=== PATIENT | female | born 1960 | race Caucasian/White ===

== ENCOUNTER → 2019-05-27 | Day surgery (SDC) | payer BC ==
[~2019-05-27] MED LIST: Dexamethasone 4 MG/ML SDV IV ONE; Lactated Ringers 1,000 ML IV SCH; Promethazine 25 MG/ML SDV IV ONE; Propofol 200 MG/20 ML SDV IV ONE
--- NOTE | 2019-05-27 14:54 | OR ---
DATE OF OPERATION: 05/27/2019 PREOPERATIVE DIAGNOSIS: POSITIVE COLOGUARD. POSTOPERATIVE DIAGNOSIS: POSITIVE COLOGUARD. SURGEON: Shahzad Gordon MD PROCEDURE: FULL-LENGTH COLONOSCOPY WITH FORCEPS POLYP REMOVAL X1. 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 COMPLICATIONS: None. SPECIMEN: Elongated sessile polyp, proximal sigmoid colon approximately 7 to 8 mm. FINDINGS: 1. Full-length colonoscopy. 2. Mild pandiverticulosis. 3. Sessile polyp, proximal sigmoid colon. RECOMMENDATIONS: Followup colonoscopy in 5 years. INDICATIONS: The patient was in for routine physical. Elected to have a colon cancer screen via [employer]. It was positive. She was sent for diagnostic scope. DESCRIPTION OF PROCEDURE: The patient was prepped and draped, placed in the left lateral decubitus position. A lubricated Olympus colonoscope was inserted and easily advanced to the cecum. Direct visualization of the ileocecal valve and appendiceal orifice was accomplished. The bowel prep was excellent. Upon withdrawal of the scope, the cecal pouch, ascending and transverse colon were completely benign. No lesions in the descending colon. Right in the immediate proximal sigmoid colon, the patient had a semi-elongated sessile polyp anywhere from 5-7 mm we were able to remove with 3 forceps biopsies in its entirety. The rest of the sigmoid colon showed no polyps. The patient does have pandiverticulosis extending all the way over in the right colon, very mild, but present throughout. No inflammatory changes were seen. No signs of colitis or vascular abnormalities. The rectal vault was benign. Retroflexion scope in the rectum showed no perianal lesions. Air was suctioned. Scope removed without complication. LIZBETH/ALBERTO /[id number]
== END ==
LOC: CC.SDS 07:12
PROVIDERS: ATTEND Family Medicine
DX: K63.5 Polyp of colon (principal); K57.30 Diverticulosis of large intestine without perforation or abscess without bleeding; M19.90 Unspecified osteoarthritis, unspecified site; E03.9 Hypothyroidism, unspecified; E78.5 Hyperlipidemia, unspecified; M85.80 Other specified disorders of bone density and structure, unspecified site; N95.2 Postmenopausal atrophic vaginitis; D70.9 Neutropenia, unspecified; Z88.1 Allergy status to other antibiotic agents; Z79.82 Long term (current) use of aspirin; Z79.890 Hormone replacement therapy; Z79.899 Other long term (current) drug therapy
CPT/HCPCS: 45380; J1100; J2550; J2704; J7120